=== PATIENT | male | born 1980 | race Caucasian/White ===

== ENCOUNTER 2023-11-28 06:02 | Emergency (ER) | payer SELFPAY ==
[2023-11-28 06:03] VITALS: BP 169/102; PULSE 98; RESP 16; TEMP 37.1; O2SAT 97; BMI 38.7
--- NOTE | 2023-11-28 06:23 | W.ED.MALEGU ---
HPI - Male Genitourinary General: Chief complaint: Urogenital-Male Stated complaint: Catheter issues Time Seen by Provider: 11/28/23 06:04 History of Present Illness: 43-year-old male with chronic indwelling suprapubic Herring. He has not followed by urology. Weeks ago he was at a hospital in [place] they change the catheter. He said after that he had trouble with it not draining so he changed the catheter again at home. He is concerned about it malfunctioning now. Complaining of pain in the abdomen and groin and believes he may have another infection. He says his testicles are swelling, the swelling is waxing and waning over time. No fever sweats or chills. 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 Associated symptoms: Deny dysuria Related Data Previous Rx's Medication Instructions Recorded ciprofloxacin HCl 500 mg tablet 500 mg PO BID #20 tabs 11/28/23 (Cipro) Allergies Allergy/AdvReac Type Severity Reaction Status Date / Time No Known Allergies Allergy Verified 11/28/23 06:10 Review of Systems Const: Denies: fever(s) or chills Card: Denies: chest pain Resp: Denies: dyspnea GI: Denies: abdominal pain : Denies: dysuria, urinary frequency or urinary urgency Musc: Denies: neck pain or back pain Skin/Breast: Denies: rash Physical Exam Const: COMMON NORMALS: no acute distress GENERAL APPEARANCE: cooperative and comfortable ORIENTATION/CONSCIOUSNESS: Yes awake, Yes oriented to person, Yes oriented to place and Yes oriented to time HENMT: COMMON NORMALS: normocephalic, atraumatic and hearing grossly normal bilaterally HEAD & SCALP: normocephalic and atraumatic Resp: COMMON NORMALS: normal respiratory effort, No retractions, No use of accessory muscles and clear to auscultation bilaterally AUSCULTATION: clear to auscultation bilaterally Cardio: COMMON NORMALS: regular rate, regular rhythm and No murmurs present (Cardio) RATE: regular rate RHYTHM: regular rhythm GI: COMMON NORMALS: Soft to palpation and No hepatosplenomegaly present AUSCULTATION: Yes normoactive bowel sounds PALPATION: Yes Soft to palpation, No Tenderness to palpation present (GI), No Guarding due to palpation present (GI) and Yes No hepatosplenomegaly present : OTHER: Normal circumcised male no swelling erythema redness no induration of the perineal skin over the scrotum or in the groin no skin breakdown or ulcerations Extremity: COMMON NORMALS: normal to inspection, capillary refill normal, no clubbing, cyanosis or edema, no calf tenderness and no pedal edema Neuro: SENSORIUM/ORIENTATION: Yes oriented to person, Yes oriented to place and Yes oriented to time Skin: COMMON NORMALS: no rashes or lesions noted GENERAL SKIN EXAM: no rashes or lesions noted Course Vital Signs: Vital signs: Vital Signs Temperature 98.8 F 11/28/23 06:03 Pulse Rate 71 11/28/23 11:19 Respiratory Rate 16 11/28/23 06:03 Blood Pressure 171/99 11/28/23 11:19 Pulse Oximetry 96 11/28/23 11:19 Oxygen Delivery Me thod Room Air 11/28/23 06:03 MDM - Male Medical Decision Making Labs and imaging reviewed. No sign of nephrolithiasis hydronephrosis hydroureter. Patient was concerned that he Herring was not working well however there is no sign of urinary retention urine does seem to be flowing freely. There is a leakage around the catheter. 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 Will make arrangements for him to follow-up with urology he does have signs of a cystitis there is some bladder wall irritation on his CT. Strongly encouraged him to start on the Cipro 500 twice daily for 10 days and follow-up with urology as soon as he is able. Lab Data I reviewed the patient's lab results. 11/28/23 06:37 11/28/23 06:37 Radiology Impressions Scrotum Ultrasound 11/28/23 06:35 IMPRESSION: 1. No testicular mass or torsion. 2. No acute epididymitis or orchitis. 3. No scrotal wall fluid collection. Abdomen/Pelvis CT 11/28/23 09:19 IMPRESSION: 1. Suprapubic catheter with diffuse bladder wall thickening suspicious for cystitis. Recommend correlation for UTI and catheter drainage. 2. No hydronephrosis in either kidney. No obstructing renal or ureteral calculi. Notified Iban Gonzalez DO at 11/28/2023 10:59 AM. Laboratory Results WBC 9.70 10^3/uL (3.29-11.43) 11/28/23 06:37 RBC 5.06 10^6/uL (3.85-5.65) 11/28/23 06:37 Hgb 14.70 g/dL (11.27-16.99) 11/28/23 06:37 Hct 43.8 % (37-53) 11/28/23 06:37 MCV 86.6 fl (82-101) 11/28/23 06:37 MCH 29.1 pg (27-33) 11/28/23 06:37 MCHC 33.6 g/dL (30-55) 11/28/23 06:37 RDW 11.6 % (12.1-15.1) L 11/28/23 06:37 Plt Count 173 10^3/cmm (157-399) 11/28/23 06:37 MPV 8.7 fL (7.4-10.4) 11/28/23 06:37 Neut % (Auto) 83.1 % 11/28/23 06:37 Lymph % (Auto) 12.1 % 11/28/23 06:37 [place] % (Auto) 3.8 % 11/28/23 06:37 Eos % (Auto) 0.4 % 11/28/23 06:37 Baso % (Auto) 0.3 % 11/28/23 06:37 Neut # (Auto) 8.06 10^3/uL (1.8-7.7) H 11/28/23 06:37 Lymph # (Auto) 1.2 10^3/uL (0.8-4.8) 11/28/23 06:37 [place] # (Auto) 0.4 10^3/uL (0.2-0.9) 11/28/23 06:37 Eos # (Auto) 0.0 10^3/uL (0.0-0.8) 11/28/23 06:37 Baso # (Auto) 0.0 10^3/uL (0.0-0.1) 11/28/23 06:37 Nucleated RBC % (auto) 0 % 11/28/23 06:37 Nucleated RBCs # 0.0 /100WBC 11/28/23 06:37 Sodium 134 mmol/L (136-145) L 11/28/23 06:37 Potassium 3.7 mmol/L (3.5-5.1) 11/28/23 06:37 Chloride 101 mmol/L (98-107) 11/28/23 06:37 Carbon Dioxide 21 mmol/L (22-29) L 11/28/23 06:37 Anion Gap 15.7 (5-19) 11/28/23 06:37 BUN 11 mg/dL (6-20) 11/28/23 06:37 Creatinine 0.9 mg/dL (0.7-1.2) 11/28/23 06:37 GFR Calculation 91.7 mL/min (90-130) 11/28/23 06:37 Glucose 153 mg/dL (65-115) H 11/28/23 06:37 Calculated Osmolality 280 mOsm/kg (285-295) L 11/28/23 06:37 Calcium 8.7 mg/dL (8.5-10.5) 11/28/23 06:37 Total Bilirubin 0.4 mg/dL (0.15-1.2) 11/28/23 06:37 AST 18 U/L (0-40) 11/28/23 06:37 ALT 22 U/L (0-41) 11/28/23 06:37 Alkaline Phosphatase 101 U/L (40-130) 11/28/23 06:37 Total Protein 7.1 g/dL (6.6-8.7) 11/28/23 06:37 Albumin 3.8 g/dL (3.5-5.2) 11/28/23 06:37 Globulin 3.3 g/dL (1.3-4.6) 11/28/23 06:37 Urine Color Dark yellow (Yellow) A 11/28/23 06:03 Urine Appearance Cloudy (CLEAR) A 11/28/23 06:03 Urine pH 6.0 (5-7) 11/28/23 06:03 Ur Specific [place] 1.024 (1.005-1.030) 11/28/23 06:03 Urine Protein 2+ (Negative) A 11/28/23 06:03 Urine Glucose (UA) Negative (Normal) 11/28/23 06:03 Urine Ketones Trace (Negative) 11/28/23 06:03 Urine Blood 3+ (Negative) A 11/28/23 06:03 Urine Nitrate Negative (Negative) 11/28/23 06:03 Urine Bilirubin 1+ (Negative) H 11/28/23 06:03 Urine Urobilinogen 1.0 mg/dL (Negative) 11/28/23 06:03 Ur Leukocyte Esterase 3+ (Negative) A 11/28/23 06:03 Urine RBC >100 /hpf (0-2) H 11/28/23 06:03 Urine WBC >100 /hpf (0-5) H 11/28/23 06:03 Ur Squamous Epith Cells 0-5 /hpf (0-5) 11/28/23 06:03 Amorphous Sediment Not Reportable 11/28/23 06:03 Urine Bacteria 4+ /hpf (NONE) H 11/28/23 06:03 Hyaline Casts 31.43 /lpf 11/28/23 06:03 All radiology interpretation(s) finalized by discharge Discharge Plan Discharge Patient Disposition: Home Clinical Impression: Urinary tract infection, Chronic suprapubic catheter Condition: Stable Prescriptions: New Cipro 500 mg tablet 500 mg PO BID Qty: 20 0RF Discharge Orders: Discharge ED (Routine); Ordered 11/28/23 Ordered By: Iban Gonzalez Discharge Diet: Usual diet Discharge Activity: Resume usual activity Patient Instructions: Opioid Safety, Pain Management Activity Restrictions/Additional Instructions: Thank you for choosing [facility] for your healthcare needs today. It is very important that you follow up as instructed or that you return to the Emergency Department should you have concerns or if your condition changes or worsens in any way. You were seen today for complaints regarding your Herring catheter catheter is draining well there is no retained urine in the bladder. Urine did show signs of infection and blood. CT did not show any evidence of renal stones or any dilation of the ureters or kidneys. Recommend you start oral antibiotic ciprofloxacin 500 mg 1 twice a day for 10 days. Case management will make arrangements for you to follow-up with urology. Coding Level of Care Code ED Computer [employer] Instructor for Sarah Gonzalez
--- NOTE | 2023-11-28 06:26 | PC.NURSE ---
pt arrived with a indwelling supra pubic cath in place
--- NOTE | 2023-11-28 06:35 | US_ITS ---
WS: [id number] TESTICULAR ULTRASOUND HISTORY: pain swelling COMPARISON: None available. TECHNIQUE: Real-time and color Doppler imaging or utilized to perform a testicular ultrasound. Right testicle: 4.1 cm x 2.2 cm x 2.1 cm. Normal sized testicles with mild heterogeneity. No mass. Normal color Doppler is present throughout. Systolic and diastolic velocities are both present. No significant hydrocele. Right epididymis: Mildly thickened and prominent epididymis but no increased vascularity. Left testicle: 4.0 cm x 2.1 cm x 2.6 cm. Normal size and echogenicity. No mass or torsion. Normal color Doppler is present throughout. Systolic and diastolic velocities are both present. No significant hydrocele. Left epididymis: Normal epididymis with no increased vascularity. US/US scrotum [id number] IMPRESSION: 1. No testicular mass or torsion. 2. No acute epididymitis or orchitis. 3. No scrotal wall fluid collection.
[2023-11-28 06:45] LABS: Basophils % 0.3 %; Eosinophils % 0.4 %; Hematocrit 43.8 % (37-53); Lymphocytes # 1.2 10^3/uL (0.8-4.8); Lymphocytes % 12.1 %; Mean Corpuscular HGB Conc 33.6 g/dL (30-55); Mean Corpuscular Hemoglobin 29.1 pg (27-33); Mean Corpuscular Volume 86.6 fl (82-101); Mean Platelet Volume 8.7 fL (7.4-10.4); Monocytes # 0.4 10^3/uL (0.2-0.9); Monocytes % 3.8 %; Neutrophils # 8.06 10^3/uL (1.8-7.7); Neutrophils % 83.1 %; Nucleated Red Blood Cells % 0 %; Platelet Count 173 10^3/cmm (157-399); Red Blood Count 5.06 10^6/uL (3.85-5.65); Red Cell Distribution Width 11.6 % (12.1-15.1)
[2023-11-28 07:01] LABS: Alanine Aminotransferase 22 U/L (0-41); Albumin Level 3.8 g/dL (3.5-5.2); Alkaline Phosphatase 101 U/L (40-130); Anion Gap 15.7 (5-19); Aspartate Amino Transferase 18 U/L (0-40); Blood Urea Nitrogen 11 mg/dL (6-20); Calcium 8.7 mg/dL (8.5-10.5); Carbon Dioxide 21 mmol/L (22-29); Chloride 101 mmol/L (98-107); Creatinine Clr Calc Pharmacy 137.4637; Globulin 3.3 g/dL (1.3-4.6); Glomerular Filtration Rate 91.7 mL/min (90-130); Glucose 153 mg/dL (65-115); Osmolality Calculated 280 mOsm/kg (285-295); Potassium 3.7 mmol/L (3.5-5.1); Sodium 134 mmol/L (136-145); Total Bilirubin 0.4 mg/dL (0.15-1.2); Total Protein 7.1 g/dL (6.6-8.7)
[2023-11-28 07:26] LABS: Bacteria Urine 4+ /hpf; Hyaline Casts Urine 31.43 /lpf; RBC Urine >100 /hpf (0-2); Squamous Epithelial Cell Urine 0-5 /hpf (0-5); WBC Urine >100 /hpf (0-5)
[2023-11-28 07:31] LABS: Bilirubin Urine 1+ (Negative); Blood Urine 3+ (Negative); Glucose Urine UA Negative (Normal); Ketones Urine Trace (Negative); Leukocyte Esterase Urine 3+ (Negative); Nitrate Urine Negative (Negative); Protein Urine 2+ (Negative); Specific Gravity, Urine 1.024 (1.005-1.030); Urine Color Dark Yellow (Yellow)
[2023-11-28 07:40] LABS: UA Slide Review UA Slide Review Perf; Urine Appearance Cloudy (CLEAR)
[2023-11-28 07:42] LABS: Add Urine Culture? Yes
--- NOTE | 2023-11-28 09:19 | CT_ITS ---
WS: [id number] CT ABDOMEN PELVIS TECHNIQUE: Noncontrast CT of the abdomen and pelvis with coronal and sagittal reformatted images. CLINICAL INFORMATION: flank pain COMPARISON: None. DLP: 1308.[address] scans at [facility] use at least one of these dose optimization techniques: automated e xposure control; mA and/or kV adjustment per patient size (includes targeted exams where dose is matc hed to clinical indication); or iterative reconstruction. FINDINGS: Suprapubic catheter with diffuse bladder wall thickening suspicious for cystitis. Recommend correlation for UTI and catheter drainage. No hydronephrosis in either kidney. Adrenal glands are normal. No obstructing renal or ureteral calcu li. Suprapubic catheter. Tiny fat-containing umbilical hernia. Lung bases are well aerated. Noncontrast liver is normal. Normal noncontrast spleen. Tiny fat-contain ing umbilical hernia. Fatty atrophy of the pancreas. CT/CT kidney stone [id number] IMPRESSION: 1. Suprapubic catheter with diffuse bladder wall thickening suspicious for c ystitis. Recommend correlation for UTI and catheter drainage. 2. No hydronephrosis in either kidney. No obstructing renal or ureteral calcul i. Notified Iban Gonzalez DO at 11/28/2023 10:59 AM.
[2023-11-28 11:19] VITALS: BP 171/99; PULSE 71; O2SAT 96
== END 2023-11-28 11:20 | disposition home or self-care (01) ==
PROVIDERS: Emergency Provider Family Medicine
DX: N39.0 Urinary tract infection, site not specified (principal); T83.038A Leakage of other urinary catheter, initial encounter
CPT/HCPCS: 36415; 51798; 74176; 76870; 80053; 81015; 85025; 87086; 99284